=== PATIENT | female | born 1985 | race Hispanic/Latino ===

== ENCOUNTER → 2017-03-12 | Outpatient (CLI) | payer OTHER | END | disposition home or self-care (01) | LOC: LAB.O 10:18 | PROVIDERS: ATTEND Nurse Practitioner Family | DX: R19.7 Diarrhea, unspecified (principal) ==

== ENCOUNTER → 2017-08-22 | Outpatient (CLI) | payer OTHER | LOC: LAB.O 11:11 | PROVIDERS: ATTEND Internal Medicine Gastroenterology | DX: R19.4 Change in bowel habit (principal); K92.1 Melena; R10.9 Unspecified abdominal pain ==

== ENCOUNTER 2017-10-10 05:41 | Day surgery (SDC) | payer OTHER ==
[2017-10-10] MEDS ORDERED: LACTATED RINGERS 1,000 ML ONE (06:45)
[2017-10-10] MEDS ORDERED: PROPOFOL 200 MG/20 ML VIAL IV ONE (10:00)
--- NOTE | 2017-10-10 11:19 | OP ---
DATE OF PROCEDURE: 10/10/17 PREOPERATIVE DIAGNOSIS: 1. Hematochezia. 2. Change in bowel habits. POSTOPERATIVE DIAGNOSIS: 1. Ulcerative colitis proctitis. PROCEDURE: 1. Colonoscopy with biopsy. SURGEON: Viral Rincon MD ANESTHESIA: Monitored anesthesia care. ESTIMATED BLOOD LOSS: Less than 5 mL. COMPLICATIONS: No immediate complications. PROCEDURE: The patient was placed in the left lateral decubitus position. After monitored anesthesia care anesthesia was achieved, the colonoscope was inserted through the anus and into the rectum and advanced under direct visualization to the cecum. Advancement was moderately difficult due to sigmoid and right colon tortuosity with significant looping, requiring manual pressure and repositioning to the supine position. The cecum was identified by the ileocecal valve and the appendiceal orifice. Intubation of the terminal ileum was performed. The endoscope was then progressively withdrawn and the total colonic lumen evaluated. Retroflexion was performed in the rectum. The colonoscope was then withdrawn and the procedure terminated. The patient tolerated the procedure well with no immediate complications. FINDINGS: Colitis characterized by erythema, erosions, friability and loss of normal vascularity was seen from the dentate line extending 15 cm proximally into the rectum. The inflammation was confluent, above the extent of inflammation, the colonic mucosa appeared normal. Multiple biopsies were taken for histology. The sigmoid colon, descending colon, transverse colon, ascending colon and cecum were all normal. The terminal ileum was normal. IMPRESSION: 1. Ulcerative proctitis status post biopsies. RECOMMENDATIONS: 1. Await pathology results. 2. Start Canasa suppositories or Rowasa enemas. 3. Followup with me in GI clinic in 1 to 2 months. #[id number] [facility]
[2017-10-10 11:20] VITALS: BP 101/66; TEMP 97.5; O2SAT 100
== END 2017-10-10 11:35 | disposition home or self-care (01) ==
LOC: AMB 05:41
PROVIDERS: ATTEND Internal Medicine Gastroenterology
DX: K51.20 Ulcerative (chronic) proctitis without complications (principal); K52.9 Noninfective gastroenteritis and colitis, unspecified; K92.1 Melena; R19.4 Change in bowel habit
CPT/HCPCS: 00811; 45380; 81025; J3490; J7120

== ENCOUNTER 2019-05-14 11:29 | Emergency (ER) | payer OTHER ==
[2019-05-14] MEDS ORDERED: ASPIRIN TABLET 325 MG TAB ONE (11:34)
--- NOTE | 2019-05-14 11:49 | ED.PDOC ---
History of Present Illness - General Chief Complaint: Chest Pain/MA Stated Complaint: chest pain Time Seen by Provider: 05/14/19 11:32 Source: patient Exam Limitations: no limitations - History of Present Illness Initial Comments: 33 yo F with hx of ulcerative proctitis who presents for midsternal CP, constant since last night, throbbing, radiation to back, one episode of vomiting last night after attempting to eat, no n/v this am. Reports mouth sores that she has made worse by biting at them that have been present for months, dentist tried to treat with mouth wash but pt stopped taking it because it made her teeth sensitive. Denies f/c, cough, congestion, SOB, abd pain, diarrhea, edema, urinary sx. No hx of CAD, no fam hx of CAD at young age. No hx of PE, DVT, no recent travel or surgery. Allergies/Adverse Reactions: Allergies NO KNOWN ALLERGY Allergy (Verified 05/14/19 11:52) Home Medications: Ambulatory Orders Chlorhexidine Mouth Rinse [Peridex] 0.12 % MT BID #1 bttl 05/14/19 Review of Systems - Review of Systems Constitutional: Denies: chills, fever EENTM: States: other - mouth sores. Denies: nose congestion, throat pain Respiratory: Denies: cough, short of breath Cardiology: States: chest pain. Denies: edema, palpitations, syncope Gastrointestinal/Abdominal: States: nausea, vomiting. Denies: abdominal pain, constipation, diarrhea Genitourinary: Denies: dysuria, frequency, hematuria Musculoskeletal: Denies: joint swelling, neck pain Skin: Denies: change in color, rash Neurological: Denies: headache, numbness, weakness Endocrine: Denies: increased thirst, increased urine Hematologic/Lymphatic: Denies: easy bleeding, easy bruising Past Medical History (General) - Patient Medical History Hx Congestive Heart Failure: No Hx Diabetes: No Hx MRSA: Yes MRSA Source:: Wound Family Medical History - Family History Mother Hx Family Diabetes: Yes Physical Exam - Physical Exam General Appearance: Alert, Comfortable, No apparent distress, Well Developed, Well Nourished Eyes, Ears, Nose, Throat Exam: PERRL/EOMI, other - ulcerative oral lesions on top and sides of mouth Neck: non-tender, full range of motion, supple Respiratory: chest non-tender, lungs clear, normal breath sounds, no respiratory distress, no accessory muscle use Cardiovascular/Chest: normal peripheral pulses, regular rate, rhythm, no edema, no gallop, no JVD, no murmur Peripheral Pulses: radial,right: 2+, radial,left: 2+ Gastrointestinal/Abdominal: normal bowel sounds, non tender, soft, no organomegaly, no pulsatile mass, other - No distention, guarding, rebound Extremity: normal range of motion, non-tender, normal inspection, no pedal edema, no calf tenderness, normal capillary refill Neurologic: no motor/sensory deficits, alert, normal mood/affect, oriented x 3 Skin Exam: normal color, warm/dry Lymphatic: no adenopathy Progress - Progress Progress: I have explained and reviewed all results with the pt. Pt is feeling better, comfortable with d/c home. I explained that emergent conditions may arise and to return to the ER for new, worsening, or any persistent conditions. I've explained the importance of f/u for recheck. All questions and concerns add ressed at this time. Pt understands and agrees with plan. Pt well appearing, NAD, is stable for discharge. Mi Noriega MD Emergency Medicine Physician Billing Number [id number] - Results/Orders Results/Orders: 05/14/19 11:45 EKG STAT Laboratory Results - last 24 hr 05/14/19 05/14/19 05/14/19 11:40 11:40 11:40 WBC 5.4 RBC 4.10 L Hgb 11.5 L Hct 34.8 L MCV 84.8 MCH 28.0 MCHC 33.0 RDW 12.9 Plt Count 325 MPV 7.5 Absolute Neuts (auto) 4.20 Absolute Lymphs (auto) 0.70 L Absolute Monos (auto) 0.40 Absolute Eos (auto) 0.10 Absolute Basos (auto) 0.00 Neutrophils % 78.2 H Lymphocytes % 13.4 L Monocytes % 7.1 Eosinophils % 1.1 Basophils % 0.2 D-Dimer, Quantitative 0.91 H* Sodium 140 Potassium 3.2 L Chloride 106 Carbon Dioxide 27 Anion Gap 10.2 L BUN 10 Creatinine 0.46 L BUN/Creatinine Ratio 21.7 H Random Glucose 84 Serum Osmolality 277.6 Calcium 8.9 Total Bilirubin 0.8 AST 30 ALT 23 Alkaline Phosphatase 58 Troponin I Serum Total Protein 8.4 H Albumin 3.7 Globulin 4.7 H Albumin/Globulin Ratio 0.8 L Lipase Serum HCG, Qual 05/14/19 05/14/19 05/14/19 11:40 11:40 11:40 WBC RBC Hgb Hct MCV MCH MCHC RDW Plt Count MPV Absolute Neuts (auto) Absolute Lymphs (auto) Absolute Monos (auto) Absolute Eos (auto) Absolute Basos (auto) Neutrophils % Lymphocytes % Monocytes % Eosinophils % Basophils % D-Dimer, Quantitative Sodium Potassium Chloride Carbon Dioxide Anion Gap BUN Creatinine BUN/Creatinine Ratio Random Glucose Serum Osmolality Calcium Total Bilirubin AST ALT Alkaline Phosphatase Troponin I < 0.02 Serum Total Protein Albumin Globulin Albumin/Globulin Ratio Lipase 26 Serum HCG, Qual Negative CXR: EXAM DESCRIPTION: Chest,2 Views CLINICAL HISTORY: cp COMPARISON: None TECHNIQUE: PA/lateral FINDINGS: There is no acute appearing cardiac or pulmonary abnormality. Heart size is normal with normal pulmonary vascularity. No pleural effusion or pneumothorax. Lungs are clear with no consolidating infiltrate. Lateral view shows intact sternum and T-spine. IMPRESSION: No acute process is identified in the chest. Electronically signed by: Darren Candelaria MD 05/14/2019 12:32 PM STUDY ASSISTANT CTA chest: EXAM DESCRIPTION: CTA Chest CLINICAL HISTORY: 33 years Female, CP COMPARISON: None available TECHNIQUE: Contiguous thin section axial images through the chest were obtained after the administration of intravenous contrast. MIPS, Sagittal and coronal reconstructions were reviewed. FINDINGS: The visualized thyroid gland and supraclavicular region appear normal. Multiple enlarged lymph nodes measuring up to 1.5 cm are identified in the bilateral axillary regions. No abnormally enlarged mediastinal or hilar lymphadenopathy. Trachea is midline and the central tracheobronchial tree is patent. Mild subsegmental atelectasis is noted in the bilateral lower lobes. No nodules or masses are visualized. No evidence of pleural effusions. The heart is normal in size with no pericardial effusion. The visualized aorta is nonaneurysmal with no significant atherosclerosis. The superior vena cava is normal in size and caliber.No significant coronary artery atherosclerosis. No central or major vessel pulmonary embolus. The esophagus appears normal throughout its visualized length. The liver demonstrates diffuse fatty infiltration. No other abnormality is noted in the imaged upper abdomen. 2 x 2.1 cm fibrous cortical defect is identified in the left lamina and pedicle of T12 vertebral body. IMPRESSION: 1. No acute cardiopulmonary process. 2. No central or major vessel pulmonary embolus. 3. Nonspecific bilateral axillary lymphadenopathy. This exam was performed according to our departmental dose-optimization program, which includes automated exposure control, adjustment of the mA and/or kV according to patient size and/or use of iterative reconstruction technique. Electronically signed by: Pearl Chapman MD 05/14/2019 1:01 PM STUDY ASSISTANT Vital Signs - 24 hr 05/14/19 11:46 Temperature 98.2 F Pulse Rate [ 65 monitor] Respiratory 20 Rate Blood Pressure 165/90 [la] O2 Sat by Pulse 95 Oximetry - EKG/XRAY/CT EKG: Oli, Sinus, no ST T wave changes Departure - Departure Clinical Impression: Hypokalemia, Axillary lymphadenopathy Chest pain Qualifiers: Chest pain type: unspecified Qualified Code(s): R07.9 - Chest pain, unspecified Time of Disposition: 13:14 Disposition: Discharge to Home or Self Care Health Concerns: condition: stable Departure Forms: ED Discharge - Pt. Copy, Patient Portal Self Enrollment Instructions: DI for Chest Pain Referrals: Mary Stallworth NP [Primary Care Provider] - 1-5 Days Prescriptions: Chlorhexidine Mouth Rinse [Peridex] 0.12 % MT BID #1 bttl Home Medications: Ambulatory Orders Chlorhexidine Mouth Rinse [Peridex] 0.12 % MT BID #1 bttl 05/14/19 Additional Instructions: Follow up: [facility] As needed, if symptoms worsen Your Primary Care Physician Make appointment, two days, for follow up You GI Make appointment, two days, for follow up
[2019-05-14 11:52] VITALS: TEMP 98.2
[2019-05-14] MEDS ORDERED: ASPIRIN TABLET 325 MG TAB PO ONE (11:53)
[2019-05-14] MEDS ORDERED: POTASSIUM CHLORIDE 20 MEQ TAB PO ONE (12:22)
--- NOTE | 2019-05-14 12:34 | RAD ---
EXAM DESCRIPTION: Chest,2 Views CLINICAL HISTORY: cp COMPARISON: None TECHNIQUE: PA/lateral FINDINGS: There is no acute appearing cardiac or pulmonary abnormality. Heart size is normal with normal pulmonary vascularity. No pleural effusion or pneumothorax. Lungs are clear with no consolidating infiltrate. Lateral view shows intact sternum and T-spine. IMPRESSION: No acute process is identified in the chest. Electronically signed by: Darren Candelaria MD 05/14/2019 12:32 PM FLY WORKER
--- NOTE | 2019-05-14 13:02 | CT ---
EXAM DESCRIPTION: CTA Chest CLINICAL HISTORY: 33 years Female, CP COMPARISON: None available TECHNIQUE: Contiguous thin section axial images through the chest were obtained after the administration of intravenous contrast. MIPS, Sagittal and coronal reconstructions were reviewed. FINDINGS: The visualized thyroid gland and supraclavicular region appear normal. Multiple enlarged lymph nodes measuring up to 1.5 cm are identified in the bilateral axillary regions. No abnormally enlarged mediastinal or hilar lymphadenopathy. Trachea is midline and the central tracheobronchial tree is patent. Mild subsegmental atelectasis is noted in the bilateral lower lobes. No nodules or masses are visualized. No evidence of pleural effusions. The heart is normal in size with no pericardial effusion. The visualized aorta is nonaneurysmal with no significant atherosclerosis. The superior vena cava is normal in size and caliber.No significant coronary artery atherosclerosis. No central or major vessel pulmonary embolus. The esophagus appears normal throughout its visualized length. The liver demonstrates diffuse fatty infiltration. No other abnormality is noted in the imaged upper abdomen. 2 x 2.1 cm fibrous cortical defect is identified in the left lamina and pedicle of T12 vertebral body. IMPRESSION: 1. No acute cardiopulmonary process. 2. No central or major vessel pulmonary embolus. 3. Nonspecific bilateral axillary lymphadenopathy. This exam was performed according to our departmental dose-optimization program, which includes automated exposure control, adjustment of the mA and/or kV according to patient size and/or use of iterative reconstruction technique. Electronically signed by: Pearl Chapman MD 05/14/2019 1:01 PM COMMUNITY ASSOCIATE
[2019-05-14 13:32] VITALS: BP 125/83; O2SAT 100
== END 2019-05-14 13:32 | disposition home or self-care (01) ==
LOC: ER 11:29
DX: R07.2 Precordial pain (principal); E87.6 Hypokalemia; R59.0 Localized enlarged lymph nodes; R00.1 Bradycardia, unspecified; K13.79 Other lesions of oral mucosa

== ENCOUNTER → 2019-05-19 | Outpatient (CLI) | payer OTHER | LOC: GMAE 10:43 | PROVIDERS: ATTEND Family Medicine | DX: R07.9 Chest pain, unspecified (principal); R07.82 Intercostal pain; R06.02 Shortness of breath; R20.2 Paresthesia of skin; R63.0 Anorexia; L29.8 Other pruritus; M46.96 Unspecified inflammatory spondylopathy, lumbar region ==

== ENCOUNTER → 2019-05-26 | Outpatient (CLI) | payer OTHER | LOC: GMAE 14:05 | PROVIDERS: ATTEND Family Medicine | DX: M32.10 Systemic lupus erythematosus, organ or system involvement unspecified (principal) ==

== ENCOUNTER → 2020-03-23 | Outpatient (CLI) | payer OTHER | LOC: GMAE 14:04 | PROVIDERS: ATTEND Family Medicine | DX: N18.2 Chronic kidney disease, stage 2 (mild) (principal); M32.14 Glomerular disease in systemic lupus erythematosus; I10 Essential (primary) hypertension; R80.9 Proteinuria, unspecified ==